=== PATIENT | male | born 1970 | race African-American/Black ===

== ENCOUNTER 2017-05-14 05:37 | Day surgery (SDC) | payer OTHER ==
[2017-05-14] VITALS (11 sets, daily range): BP systolic 147–194; BP diastolic 89–119; PULSE 66–78; RESP 12–18; Ht 182.9 cm; Wt 80.9 kg
[~2017-05-14] VITALS: Ht 182.9 cm; Wt 80.9 kg
[2017-05-14] MEDS ORDERED: CLONIDINE PO (06:54)
[2017-05-14] MEDS ORDERED: OMEP40CA6 (06:54)
[2017-05-14] MEDS ORDERED: SEVE800T13 PO (06:54)
[2017-05-14] MEDS ORDERED: ATEN-51 (06:54)
[2017-05-14] MEDS ORDERED: MIN10 (06:54)
[2017-05-14] MEDS ORDERED: ATOR40TA68 (06:54)
[2017-05-14] MEDS ORDERED: AMLO-147 (06:54)
[2017-05-14] MEDS ORDERED: FURO80TA3 (06:54)
[2017-05-14] MEDS ORDERED: BUPIVACAINE 0.5% (SDV) 30 ML INJ ONE (07:03)
[2017-05-14] MEDS ORDERED: LIDOCAINE 1% (MPF) 30 ML INJ ONE (07:03)
[2017-05-14] MEDS ORDERED: MIDAZOLAM 1 MG/ML 2 ML INJ ONE (07:31)
[2017-05-14] MEDS ORDERED: LIDOCAINE 2% (SDV) 5 ML INJ ONE (07:31)
[2017-05-14] MEDS ORDERED: SUCCINYLCHOLINE CHLORIDE 100 MG/5 ML SYG IV ONE (07:31)
[2017-05-14] MEDS ORDERED: ROCURONIUM 50 MG INJ ONE (07:31)
[2017-05-14] MEDS ORDERED: PROPOFOL 20 ML ONE ×2 (07:31→07:47)
[2017-05-14] MEDS ORDERED: CEFAZOLIN 1 GM INJ ONE (07:47)
[2017-05-14] MEDS ORDERED: ONDANSETRON 4 MG INJ ONE (07:47)
[2017-05-14] MEDS ORDERED: FENTAnyl 50 MCG/ML VIAL ONE (07:47)
[2017-05-14] MEDS ORDERED: FAMOTIDINE 20 MG INJ ONE (07:47)
[2017-05-14] MEDS ORDERED: DEXAMETHASONE 4 MG/ML 1 ML INJ ONE (07:47)
[2017-05-14] MEDS ORDERED: FENTAnyl 50 MCG/ML VIAL IV PRN (08:00)
[2017-05-14] MEDS ORDERED: HYDROmorphONE (0.2 MG/ML) 10ML SYG IV PRN ×3 (08:00)
[2017-05-14] MEDS ORDERED: hydrALAzine 20 MG INJ IV PRN (08:00)
[2017-05-14] MEDS ORDERED: ONDANSETRON 4 MG INJ IV PRN (08:00)
[2017-05-14] MEDS ORDERED: PROCHLORPERAZINE 10 MG INJ IV PRN (08:00)
[2017-05-14] MEDS ORDERED: DIPHENHYDRAMINE 50 MG INJ IV PRN (08:00)
[2017-05-14] MEDS ORDERED: LABETALOL HCL 20MG INJ IV PRN (08:00)
[2017-05-14] MEDS ORDERED: MEPERIDINE 25 MG INJ IV PRN (08:00)
[2017-05-14] MEDS ORDERED: OXYCODONE/ACETAMINOPHEN (5/325) TAB PO PRN ×2 (08:00)
--- NOTE | 2017-05-14 08:22 | RADRPT ---
PROCEDURE: XR Chest. CLINICAL INDICATION: Preop TECHNIQUE: 2 AP views of the chest were obtained COMPARISON: No prior exam is available for comparison. FINDINGS: There is a right chest Perma-Cath with tip in the lower SVC. There is prominence of the interstitial markings. No pleural effusion or pneumothorax is seen. Th e cardiomediastinal silhouette is within normal limits for size. Calcifications are seen within the aortic arch. The osseous structures demonstrate senescent changes. IMPRESSION: 1. Mild prominence of the interstitial markings, may reflect mild underlying interstitial edema or chronic lung changes. 2. Aortic atherosclerosis. 3. Right chest Perma-Cath with tip near the cavoatrial junction. RPTAT: HH .Licha Lilly MD, MD Date Time Electronically viewed and signed by .Licha Lilly MD, on 05/14/2017 08:22 .G/
[2017-05-14] MEDS ORDERED: HYDROmorphONE 2 MG/ML SYG ONE (09:03)
[2017-05-14] MEDS ORDERED: GLYCOPYRROLATE 0.4 MG INJ ONE (09:05)
[2017-05-14] MEDS ORDERED: NEOSTIGMINE 3 MG/3 ML SYRINGE ONE (09:05)
[2017-05-14] MEDS ORDERED: SOD CHLORIDE 0.9% 1,000 ML IV SCH (09:10)
--- NOTE | 2017-05-14 09:10 | SIPON ---
Date/Time of Note Date/Time of Note DATE: 05/14/17 TIME: 09:09 Operative Report Preoperative Diagnosis ESRD Postoperative Diagnosis same Operation/Procedure Performed Laparoscopic placement of PD catheter Surgeon Loni Quezada MD assistant office manager N/A Anesthesia: general Estimated blood loss: minimal Transfusion Required none Specimen None Grafts/Implants none Complications none LONI QUEZADA MD May 14, 2017 09:10
--- NOTE | 2017-05-14 09:10 | SIPON ---
Date/Time of Note Date/Time of Note DATE: 05/14/17 TIME: 09:09 Operative Report Preoperative Diagnosis ESRD Postoperative Diagnosis same Operation/Procedure Performed Laparoscopic placement of PD catheter Surgeon Loni Quezada MD college sports assistant N/A Anesthesia: general Estimated blood loss: minimal Transfusion Required none Specimen None Grafts/Implants none Complications none LONI QUEZADA MD May 14, 2017 09:10
--- NOTE | 2017-05-14 09:10 | SIPON ---
Date/Time of Note Date/Time of Note DATE: 05/14/17 TIME: 09:09 Operative Report Preoperative Diagnosis ESRD Postoperative Diagnosis same Operation/Procedure Performed Laparoscopic placement of PD catheter Surgeon Loni Quezada MD paralegal assistant N/A Anesthesia: general Estimated blood loss: minimal Transfusion Required none Specimen None Grafts/Implants none Complications none LONI QUEZADA MD May 14, 2017 09:10
--- NOTE | 2017-05-14 09:59 | OPR ---
DATE OF OPERATION: 05/14/2017 PREOPERATIVE DIAGNOSIS: Endstage renal disease. POSTOPERATIVE DIAGNOSIS: Endstage renal disease. PROCEDURE: Laparoscopic placement of a peritoneal dialysis catheter. SURGEON: Loni Reynolds MD ANESTHESIA: General. ANESTHESIOLOGIST: Dr. Montgomery. ESTIMATED BLOOD LOSS: Minimal. COMPLICATIONS: None. SPECIMEN: None. PREOPERATIVE INDICATIONS: This is a 47-year-old gentleman who was previously on peritoneal dialysis for endstage renal disease. He is status post removal of the PD catheter due to peritonitis previously. He has been treated for his peritonitis. He has been converted to hemodialysis on a right internal jugular vein Perm-A-Cath. He now presents for placement of a new peritoneal dialysis catheter. The indications, risks and benefits of the procedure were extensively discussed with the patient who understood and agreed to proceed. DESCRIPTION OF PROCEDURE: The patient was properly identified, brought to the operating room and placed in supine position. He was induced with general anesthesia without difficulty. He received preoperative antibiotics. The patient's abdomen was prepped and draped in the usual sterile fashion. Local anesthesia was injected in the supraumbilical area, a skin incision was created with a 15-blade scalpel. The incision was deepened through the subcutaneous tissues using electrocautery until the anterior fascia was identified. Batsheva clamps were then used to grasp the anterior fascia and it was incised using a 15 -blade scalpel. This was extended and preperitoneal fat was encountered. This was divided through until we were able to reach the posterior fascia/ peritoneum. This were grasped using the Batsheva clamps and this was incised sharply with Metzenbaum scissors. This allowed for direct visualization into the peritoneal cavity. There was no intervening adhesions or bowel loops that were noted on palpation and visual inspection. Then 0 Vicryl sutures was then placed for anchoring the peritoneum and the fascia. A Luis trocar was then advanced. The abdomen was then inflated and it insufflated appropriately with initial low pressures. High flow was then established to the appropriate pressure. The scope was placed and visual inspection demonstrated no gross bleeding or injury with the entry of the abdomen. There was no gross pathology aside for some adhesions down in the lower lateral quadrant of the pelvis. There was some mild heme-colored fluid deep in the pelvis, but otherwise no additional findings. Two additional 5 mm blunt trocars were placed into both lateral quadrants. This was done under direct vision for both of them. Local anesthesia was injected into the fascia and to the subcutaneous tissues and skin. The 5 mm incisions were created using a 15-blade scalpel. The ports were then placed individually under direct vision. Once both ports were placed , the patient was placed in Trendelenburg. A blunt grasper was then used to sweep away the bowel loops in the pelvic fossa. The camera was then switched over to the right lateral quadrant trocar. A double-cuffed peritoneal dialysis catheter was then advanced through the Luis port. The grasper was used to guide placement of the tip of the catheter into the pelvic fossa beneath the bowel loops. Once in good position, the patient was placed back flat and then with the head elevated up slightly to allow for the bowel loops to move caudally. Once this was in good position, the left lateral trocar was removed under direct vision and there was good hemostasis and the Luis trocar was removed previously allowing the inner cuff to be at the level of the posterior fascia. The abdomen was then desufflated. The dialysis catheter was then hooked up to the cystoscopy tubing and about 500 mL of saline was infused rapidly without any difficulty. Afterwards, approximately 500 mL of the fluid was retrieved without any difficulty. There was still some remaining fluid in the tubing. Afterwards, the subcutaneous tunnel was injected with local anesthesia. This was from the left quadrant to the umbilical incision. This was done using a large clamp. The dialysis catheter was then pulled through the subcutaneous tunnel with the external cuff pulled into the subcutaneous tract. The fascia for the umbilical site was closed using additional interrupted 0 Vicryl sutures as needed. This was done after assuring hemostasis. Subcutaneous tissues were closed with deep dermal sutures with 3-0 Vicryl sutures. The skin was closed with Monocryl 4-0 subcuticular technique. The right lateral quadrant port site was closed with 4-0 Monocryl and catheter was affixed to the skin using 3-0 nylon sutures. The catheter was capped and dry dressings were placed completely covering the catheter and it was sealed with occlusive adhesive dressings. Steri-Strips and dry dressings were then placed for the remaining incisions. The patient was then awoken from his anesthesia without any difficulty. He was transferred to recovery in good condition. Dictated By: LONI WHITFIELD/ISMAEL Conf#: [id number] [facility]#: [id number] MTDD
--- NOTE | 2017-05-14 22:43 | RADRPT ---
Vent Rate: 65 bpm RR Interval: 0 msec SD Interval: 178 msec QRS Duration: 92 msec QT Interval: 506 msec QTC Interval: 526 msec P-R-T [place]: 39 - 33 - 0 degrees Normal sinus rhythm Left ventricular hypertrophy with repolarization abnormality Prolonged QT Abnormal ECG Electronically Signed By: Travis Campbell [id number]
--- NOTE | 2017-05-14 22:43 | RADRPT ---
Vent Rate: 65 bpm RR Interval: 0 msec [place] Interval: 178 msec QRS Duration: 92 msec QT Interval: 506 msec QTC Interval: 526 msec P-R-T [place]: 39 - 33 - 0 degrees Normal sinus rhythm Left ventricular hypertrophy with repolarization abnormality Prolonged QT Abnormal ECG Electronically Signed By: Travis Campbell [id number]
--- NOTE | 2017-05-14 22:43 | RADRPT ---
Vent Rate: 65 bpm RR Interval: 0 msec [place] Interval: 178 msec QRS Duration: 92 msec QT Interval: 506 msec QTC Interval: 526 msec P-R-T [place]: 39 - 33 - 0 degrees Normal sinus rhythm Left ventricular hypertrophy with repolarization abnormality Prolonged QT Abnormal ECG Electronically Signed By: Traivs Campbell [id number]
== END 2017-05-23 10:01 | disposition home or self-care (01) ==
LOC: SDS 05:37
PROVIDERS: ATTEND Surgery
DX: N18.6 End stage renal disease (principal); I12.0 Hypertensive chronic kidney disease with stage 5 chronic kidney disease or end stage renal disease; E78.5 Hyperlipidemia, unspecified; Z99.2 Dependence on renal dialysis
CPT/HCPCS: 49324; 71010; 80053; 85025; 85610; 85730; 93005; J0360; J0690; J1100; J1170; J2250; J2405; J2710; J3010; Z7512; Z7610

== ENCOUNTER 2017-05-14 16:07 | Emergency (ER) | END 2017-05-14 16:40 | disposition home or self-care (01) ==